=== PATIENT | female | born 1990 | race Caucasian/White ===

== ENCOUNTER 2017-07-06 19:57 | Emergency (ER) | payer MEDICAID ==
[2016-06-04 05:25] VITALS: Wt 127.0 kg
[~2017-07-06 19:57] MED LIST: ACE3 PO; ALB17R INH; ALBU8.5H IH; AMO500 PO; AZI250 PO; BACDS PO; CEP500 PO; FLUT16SP20 NS; GUAI-225 PO; HYDR-4309 PO; IBU600 PO; IBUP800T37 PO; IRON1TAB55 PO; LOR5/325 PO; NO MEDS; NO ROUTINE MEDS; NO RTN MEDS; PRE20 PO; PREN-67 PO; PREN-85 PO; PRO25I IM; TOBOD OD
--- NOTE | 2017-07-06 20:00 | ER Report ---
History and Physical Time Seen By MD: 20:00 HPI/ROS CHIEF COMPLAINT: Shortness of breath HISTORY OF PRESENT ILLNESS: 27-year-old female at 15 weeks [address] Wells.. Patient's had URI for 1 week. She has a history of asthma. She was seen by primary care. She used her inhaler this morning with improvement of her breathing. She's had a terrible cough for 24 hours with nonproductive. Patient was sent over by urgent care for evaluation of potential pulmonary embolism. She seems to have quite a bit of air hunger. Her pulse ox is normal. She is not tachycardic. Patient notes no leg swelling or calf pain. REVIEW OF SYSTEMS: Respiratory: As above Cardiovascular: No chest pain, no palpitations. Gastrointestinal: No vomiting, no abdominal pain. Musculoskeletal: No back pain. Allergies: Coded Allergies: No Known Drug Allergies (Verified , 07/06/17) Home Meds Active Scripts Prednisone (PREDNISONE) 20 Mg Tablet, 20 MG PO QDAY for asthma exacerbation for 5 Days Prov:HI BETH DO 07/06/17 Reported Medications Albuterol Sulfate 90 Mcg/Act (PROAIR HFA 90 MCG/ACT) 8.5 Gm Hfa.aer.ad, 1-2 PUFF IH 3-4XD, INHALER 07/06/17 Vits W-Ca,Fe,Fa(<1MG) ( Vitamins) 1 Tab Tablet, 1 TAB PO QDAYA TAKE 1 TABLET DAILY 03/27/12 Discontinued Scripts Ibuprofen (IBUPROFEN) 800 Mg Tablet, 800 MG PO Q8H, #60 TAB-CAP 1 Refill Prov:OTONIEL GORDON MD 06/05/16 Acetaminophen/Codeine (TYLENOL #3 (OR EQUIV)) 1 Ea Tab, 1-2 EACH PO Q4H Y for PAIN, #30 TAB 0 Refills Prov:OTONIEL GORDON MD 06/05/16 Reviewed Nurses Notes: Yes Old Medical Records Reviewed: Yes Hx Smoking: No Smoking Status: Never Smoker Exposure to Second Hand Smoke?: No Hx Substance Use Disorder: No Hx Alcohol Use: No Constitutional Vital Sign - Last 24 Hours 07/06/17 07/06/17 07/06/17 07/06/17 20:01 20:03 20:12 20:27 Temp 98.3 Pulse 75 74 69 Resp 14 B/P (MAP) 100/68 (79) 100/68 Pulse Ox 96 96 97 O2 Delivery Room Air 07/06/17 07/06/17 07/06/17 20:42 20:57 21:12 Pulse 77 78 74 Pulse Ox 93 93 95 Physical Exam General Appearance: The patient is alert, has no immediate need for airway protection and no current signs of toxicity. Vital signs stable, afebrile, pulse ox normal, mild air hunger with repetitive coughing. The cough appears dry HEENT: Pupils equal and round no injection. TMs normal, oropharynx without or exudate, mucous. Membranes are moist Respiratory: Chest is non tender, lungs are clear to auscultation. Faint expiratory wheezing, Cardiac: regular rate and rhythm Gastrointestinal: Abdomen is soft and non tender, no masses, bowel sounds normal. Musculoskeletal: Neck: Neck is supple and non tender. Extremities have full range of motion and are non tender. Skin: No rashes or lesions. DIFFERENTIAL DIAGNOSIS: After history and physical exam differential diagnosis was considered for shortness of breath including but not limited to pulmonary infectious process, COPD, asthma, pulmonary embolus and congestive heart failure. Medical Decision Making EKG/Imaging EKG Interpretation 12 lead EK Rhythm: normal sinus rhythm at 69 bpm [place]: normal QRS: S1, every 3, T3 suggesting pulmonary embolism noted, ST segments: normal ED Course/Re-evaluation ED Course Patient was admitted to an examination room. H&P was done. The differential diagnoses was considered. On conical examination. Patient has air hunger. She has had a normal respiratory rate, normal pulse ox and a normal heart rate. An EKG is performed which shows S1, every 3, T3 suspicious for pulmonary embolus him. The results are discussed with her. Her case is discussed with Dr. Poole on-call [employer], who advises to proceed with CT pulmonary angiogram. Patient refused CT pulmonary angiogram. She states 2 years ago she had a CT pulmonary angiogram and she proceeded to miscarriage. Her . She would like to proceed with a VQ scan tomorrow. Patient was treated with Lovenox 120 mg subcutaneous. Patient was given information to follow up tomorrow for a VQ scan. She is placed on prednisone 20 mg per day for 5 days. She is advised to use Robitussin-DM for cough suppression. 07/06/2017 8:28:22 pm case discussed with Dr. Sorin Poole who advises proceeding to CTPA. Decision to Disposition Date: Jul 06, 2017 Decision to Disposition Time: 20:37 Depart Departure Latest Vital Signs Vital Signs Date Time Temp Pulse Resp B/P (MAP) Pulse Ox O2 Delivery O2 Flow Rate FiO2 07/06/17 21:12 74 95 07/06/17 20:03 98.3 14 100/68 Room Air Impression: Primary Impression: Dyspnea Additional Impressions: Cough Asthma Condition: Improved Disposition: HOME OR SELF-CARE Referrals: EZIO CERDA MD New Scripts Prednisone (PREDNISONE) 20 Mg Tablet 20 MG PO QDAY for asthma exacerbation for 5 Days Prov: HI BETH DO 07/06/17 Patient Instructions: Asthma (ED), Dyspnea (ED) Additional Instructions: Follow-up with your [employer] after the VQ scan Return to the ER for any worsening Problem Qualifiers Primary Impression: Dyspnea Dyspnea type: dyspnea on exertion Qualified Codes: R06.09 - Other forms of dyspnea Additional Impressions: Asthma Asthma severity: mild Asthma persistence: intermittent Asthma complication type: with acute exacerbation Qualified Codes: J45.21 - Mild intermittent asthma with (acute) exacerbation HI BETH DO Jul 06, 2017 20:00
[2017-07-06 20:03] VITALS: BP 100/68
[2017-07-06] MEDS ORDERED: ALBU8.5H IH (20:06)
[2017-07-06] MEDS ORDERED: predniSONE 20 MG TAB PO ONE (20:30)
--- NOTE | 2017-07-06 20:45 | EKG ---
FACILITY: [facility] - [place] PATIENT NAME: KIZZY MARI : [id number] MR: [id number] V: [id number] EXAM DATE: ORDERING PHYSICIAN: HI BETH TECHNOLOGIST: SAM Test Reason : SOB Blood Pressure : / mmHG Vent. Rate : 069 BPM Atrial Rate : 069 BPM P-R Int : 160 ms QRS Dur : 112 ms QT Int : 406 ms P-R-T Axes : 042 086 006 degrees QTc Int : 435 ms Normal sinus rhythm Interventricular conduction delay. Cannot rule out Inferior infarct , age undetermined Abnormal ECG No previous ECGs available Confirmed by AYALA OROZCO ([id number]) on 07/06/2017 10:09:34 PM Referred By: Confirmed By:AYALA OROZCO
[2017-07-06] MEDS ORDERED: ENOXAPARIN 100 MG/ML SYR SC ONE (20:55)
[2017-07-06] MEDS ORDERED: PRED20TA6 PO (21:01)
== END 2017-07-06 21:37 | disposition home or self-care (01) ==
LOC: ER 20:26
DX: O26.892 Other specified pregnancy related conditions, second trimester (principal); Z3A.15 15 weeks gestation of pregnancy; R06.02 Shortness of breath; R05 Cough
CPT/HCPCS: 93005; 99283; J1650; J7512

== ENCOUNTER 2017-07-07 12:54 | Emergency (ER) | payer MEDICAID ==
[2016-06-04 05:25] VITALS: Wt 127.0 kg
--- NOTE | 2017-07-07 13:19 | ER Report ---
History and Physical Time Seen By MD: 13:19 Hx. of Stated Complaint: SOB AND 15 WEEKS . HPI/ROS This is a 27-year-old female with a history of asthma who was seen in the emergency department approximately 12 hours ago for shortness of breath and a cough. At the time, according to the EMR. She was not tachycardic, not hypoxic , and not febrile. She denied any chest pain. She did complain of viral URI symptoms such as a cough and congestion. She was sent to the emergency department last night from the urgent care where she went just to make sure she did not have pneumonia. She was sent to the emergency department for a possible PE. There was a discussion last night as to obtaining a CTA of the chest to rule out a PE, but the patient refused the study and was set up for a VQ scan today. I was called by the radiologist who was concerned that if the patient refused a CTA. The VQ scan is actually more radiation for the fetus. I had the patient sent to the emergency department for reevaluation. Upon reevaluation, her shortness of breath is improved with 1 dose of steroids given to her yesterday. She still has a cough and URI symptoms. Again, there is no hypoxia and no tachycardia. She denies chest pain. She has been using her inhaler at home, now with relief of her symptoms. Remainder of the 14 system rev: Yes Allergies: Coded Allergies: No Known Drug Allergies (Verified , 07/06/17) Home Meds Active Scripts Prednisone (PREDNISONE) 20 Mg Tablet, 20 MG PO QDAY for asthma exacerbation for 5 Days Prov:HI BETH DO 07/06/17 Reported Medications Albuterol Sulfate 90 Mcg/Act (PROAIR HFA 90 MCG/ACT) 8.5 Gm Hfa.aer.ad, 1-2 PUFF IH 3-4XD, INHALER 07/06/17 Vits W-Ca,Fe,Fa(<1MG) ( Vitamins) 1 Tab Tablet, 1 TAB PO QDAYA TAKE 1 TABLET DAILY 03/27/12 Discontinued Scripts Ibuprofen (IBUPROFEN) 800 Mg Tablet, 800 MG PO Q8H, #60 TAB-CAP 1 Refill Prov:OTONIEL GORDON MD 06/05/16 Acetaminophen/Codeine (TYLENOL #3 (OR EQUIV)) 1 Ea Tab, 1-2 EACH PO Q4H Y for PAIN, #30 TAB 0 Refills Prov:OTONIEL GORDON MD 06/05/16 Reviewed Nurses Notes: Yes Old Medical Records Reviewed: Yes Hx Smoking: No Smoking Status: Never Smoker Exposure to Second Hand Smoke?: No Hx Substance Use Disorder: No Hx Alcohol Use: No Constitutional Vital Sign - Last 24 Hours 07/07/17 13:10 Temp 98.0 Pulse 79 Resp 18 B/P (MAP) 117/68 Pulse Ox 94 O2 Delivery Room Air Physical Exam General Appearance: The patient is alert, has no immediate need for airway protection and no current signs of toxicity. Eyes: Pupils equal and round no injection. Respiratory: Chest is non tender, lungs are clear to auscultation. Cardiac: regular rate and rhythm Gastrointestinal: Abdomen is soft and non tender, no masses, bowel sounds normal. Skin: No rashes or lesions. DIFFERENTIAL DIAGNOSIS: After history and physical exam differential diagnosis was considered for shortness of breath including but not limited to pulmonary infectious process, COPD, asthma, pulmonary embolus and congestive heart failure. Medical Decision Making Data Points Laboratory Hematology Test 07/07/17 13:21 D-Dimer Quantitative (PE/DVT) 0.40 ug/ml (0-0.50) Chemistry Test 07/07/17 13:21 D-Dimer Quantitative (PE/DVT) 0.40 ug/ml (0-0.50) Coagulation Test 07/07/17 13:21 D-Dimer Quantitative (PE/DVT) 0.40 ug/ml ED Course/Re-evaluation ED Course History of a very pleasant 27-year-old female at 15 weeks gestation, who presented to the emergency department last night and there was some concern of a PE. She refused CTA of the chest last night because of risk to the fetus. She arrived for a VQ scan today to the radiology department. She was sent to the emergency department, because a VQ scan is more radiation for the fetus and the CTA. I recommended that she come to the emergency department for reevaluation. She states that her shortness of breath is much improved after steroids given to her last night. Symptoms are now controlled with her own inhaler as they were not yesterday. He is not tachycardic and not hypoxic. I did order a d-dimer which is negative. I think there is a very low suspicion for a PE in the setting. This is more consistent with a viral upper respiratory infection. I spoke with the patient at length about the findings and they're both in agreement that she did not need any additional imaging to look for a PE at this time. She will continue with the prednisone prescription that was given to her last night. Decision to Disposition Date: Jul 07, 2017 Decision to Disposition Time: 14:04 Depart Departure Latest Vital Signs Vital Signs Date Time Temp Pulse Resp B/P (MAP) Pulse Ox O2 Delivery O2 Flow Rate FiO2 07/07/17 13:10 98.0 79 18 117/68 94 Room Air Impression: Primary Impression: Viral URI with cough Condition: Improved Disposition: HOME OR SELF-CARE Patient Instructions: Upper Respiratory Infection (DC) ANTHONY VITAL MD Jul 07, 2017 13:19
[2017-07-07] MEDS ORDERED: predniSONE 20 MG TAB PO ONE (14:00)
[2017-07-07 14:30] VITALS: BP 125/87
== END 2017-07-07 14:30 | disposition home or self-care (01) ==
LOC: ER 13:07
DX: O98.812 Other maternal infectious and parasitic diseases complicating pregnancy, second trimester (principal); Z3A.15 15 weeks gestation of pregnancy
CPT/HCPCS: 85379; 99282

== ENCOUNTER → 2017-07-07 | Outpatient (CLI) | payer MEDICAID ==
[2016-06-04 05:25] VITALS: BMI 38.4
[~2017-07-07] MED LIST changes: +PRED20TA6 PO
== END ==
LOC: NUC 07:40
PROVIDERS: ATTEND Emergency Medicine
DX: R06.00 Dyspnea, unspecified (principal)

== ENCOUNTER 2017-08-22 23:45 | Emergency (ER) | payer MEDICAID ==
[2016-06-04 05:25] VITALS: Wt 127.0 kg
[2017-08-22 23:54] VITALS: BP 115/74
--- NOTE | 2017-08-22 23:59 | ER Report ---
History and Physical Time Seen By MD: 00:00 Hx. of Stated Complaint: Pt reports being having eye drainage, cough, and ear pain. HPI/ROS CHIEF COMPLAINT: not feeling well HISTORY OF PRESENT ILLNESS: This is a 27 year old female. She has been sick for about 3 days now. Started as runny nose and sore throat. Now with ear pain on the right side. Tonight with a red and watering left eye. Has cough which is non -productive. Feels chilled. No trouble breathing. No chest pain. Having some nausea, but no vomiting. No abdominal pain. No trouble with urination or bowels. No known sick contacts. Allergies: Coded Allergies: No Known Drug Allergies (Verified , 08/23/17) Home Meds Active Scripts Guaifenesin/Codeine (GUAIFENESIN-CODEINE SYRUP) 5 Ml Syrp, 5 ML PO Q6H Y for COUGH, #120 ML 0 Refills Prov:DUDLEY FRIEDMAN MD 08/23/17 Amoxicillin (AMOXICILLIN) 500 Mg Capsule, 1 CAP PO Q8H, #21 CAPSULE 0 Refills Prov:DUDLEY FRIEDMAN MD 08/23/17 Prednisone (PREDNISONE) 20 Mg Tablet, 20 MG PO QDAY for asthma exacerbation for 5 Days Prov:HI BETH DO 07/06/17 Reported Medications Albuterol Sulfate 90 Mcg/Act (PROAIR HFA 90 MCG/ACT) 8.5 Gm Hfa.aer.ad, 1-2 PUFF IH 3-4XD, INHALER 07/06/17 Vits W-Ca,Fe,Fa(<1MG) ( Vitamins) 1 Tab Tablet, 1 TAB PO QDAYA TAKE 1 TABLET DAILY 03/27/12 Reviewed Nurses Notes: Yes Hx Smoking: No Smoking Status: Never Smoker Exposure to Second Hand Smoke?: No Hx Substance Use Disorder: No Hx Alcohol Use: No Constitutional Vital Sign - Last 24 Hours 08/22/17 23:54 Temp 98.4 Pulse 73 Resp 18 B/P (MAP) 115/74 Pulse Ox 96 O2 Delivery Room Air Physical Exam General Appearance: The patient is alert, has no immediate need for airway protection and no current signs of toxicity. Eyes: Pupils equal and round, injection and watering of the left eye, consistent with conjunctivitis. ENT: Normal oral mucosa. Moist mucous membranes. Posterior oropharynx is mildly erythematous, but no exudates or hypertrophy. TM on the left has effusion without redness or bulging. TM on the right is red and bulging. Neck: Neck is supple and non tender. Respiratory: Chest is non tender, lungs are clear to auscultation. Cardiac: regular rate and rhythm Gastrointestinal: Abdomen is soft and non tender, no masses, bowel sounds normal. Musculoskeletal: Extremities have full range of motion. Skin: No rashes or lesions. DIFFERENTIAL DIAGNOSIS: After history and physical exam differential diagnosis was considered for upper respiratory infection with acute otitis media on the right and conjunctivitis of the left. Medical Decision Making ED Course/Re-evaluation ED Course Treatment with Amoxicillin for the otitis medial. Lubricating eye drops for the conjunctivitis. Guaifenesin with codeine to help with pain and cough. Decision to Disposition Date: Aug 23, 2017 Decision to Disposition Time: 00:13 Depart Departure Latest Vital Signs Vital Signs Date Time Temp Pulse Resp B/P (MAP) Pulse Ox O2 Delivery O2 Flow Rate FiO2 08/22/17 23:54 98.4 73 18 115/74 96 Room Air Impression: Primary Impression: Acute otitis media Additional Impression: Conjunctivitis Condition: Improved Disposition: HOME OR SELF-CARE New Scripts Guaifenesin/Codeine (GUAIFENESIN-CODEINE SYRUP) 5 Ml Syrp 5 ML PO Q6H Y for COUGH, #120 ML 0 Refills Prov: DUDLEY FRIEDMAN MD 08/23/17 Amoxicillin (AMOXICILLIN) 500 Mg Capsule 1 CAP PO Q8H, #21 CAPSULE 0 Refills Prov: DUDLEY FRIEDMAN MD 08/23/17 Patient Instructions: Conjunctivitis (ED), Otitis Media (ED) Additional Instructions: Take Amoxicillin 500mg capsules, three times a day for 7 days. Increase fluid intake and rest for the next few days. Take Guaifenesin with Codeine, 1 teaspoon every 4 hours as needed for cough and pain. Take Over the counter Ibuprofen and/or Tylenol as needed for pain. Use some over the counter lubricating eye drops, like Refresh or Sustain or other, 1 drop in the eye every 1-2 hours as needed for comfort. Problem Qualifiers Primary Impression: Acute otitis media Otitis media type: suppurative Laterality: right Recurrence: not specified as recurrent Spontaneous tympanic membrane rupture: without spontaneous rupture Qualified Codes: H66.001 - Acute suppurative otitis media without spontaneous rupture of ear drum, right ear Additional Impression: Conjunctivitis Conjunctivitis type: acute Acute conjunctivitis type: unspecified Laterality: left Qualified Codes: H10.32 - Unspecified acute conjunctivitis, left eye DUDLEY FRIEDMAN MD Aug 23, 2017 00:00
[2017-08-23] MEDS ORDERED: ROBC PO (00:14)
[2017-08-23] MEDS ORDERED: AMOX-362 PO (00:14)
[2017-08-23] MEDS ORDERED: guaiFENesin/CODEINE 5 ML UDBTL PO ONE (00:15)
[2017-08-23] MEDS ORDERED: AMOXICILLIN 500 MG CAP PO ONE (00:15)
== END 2017-08-23 00:38 | disposition home or self-care (01) ==
LOC: ER 23:56
DX: H66.001 Acute suppurative otitis media without spontaneous rupture of ear drum, right ear (principal); H10.32 Unspecified acute conjunctivitis, left eye
CPT/HCPCS: 99282

== ENCOUNTER → 2017-11-04 | Outpatient (CLI) | payer MEDICAID ==
[2016-06-04 05:25] VITALS: BMI 38.4
[~2017-11-04] MED LIST changes: +AMOX-362 PO; +DIPH0.5D12 IM; +GENT5DRO28 OP; +PRED5DRO34 OP; +PREN-127 PO; +ROBC PO
[2017-11-04 16:35] LABS: PLATELET COUNT, AUTOMATED 256 K/uL (150-450)
== END ==
LOC: LAB 15:37
PROVIDERS: ATTEND Student in an Organized Health Care Education/Training Program
DX: Z34.83 Encounter for supervision of other normal pregnancy, third trimester (principal)
CPT/HCPCS: 36415; 82950; 85025

== ENCOUNTER → 2017-11-06 | Outpatient (CLI) | payer MEDICAID ==
[2016-06-04 05:25] VITALS: BMI 38.4
== END ==
LOC: LAB 13:20
PROVIDERS: ATTEND Student in an Organized Health Care Education/Training Program
DX: Z02.9 Encounter for administrative examinations, unspecified (principal)

== ENCOUNTER → 2017-11-09 | Outpatient (CLI) | payer MEDICAID ==
[2016-06-04 05:25] VITALS: BMI 38.4
== END ==
LOC: LAB 07:35
PROVIDERS: ATTEND Student in an Organized Health Care Education/Training Program
DX: Z13.1 Encounter for screening for diabetes mellitus (principal)
CPT/HCPCS: 36415; 82951; 82952

== ENCOUNTER 2017-11-22 17:27 | Outpatient (CLI) | payer MEDICAID ==
[~2017-11-22] VITALS: Ht 167.6 cm; Wt 122.5 kg
[2017-11-22 18:01] VITALS: BP 123/63; Ht 167.6 cm; Wt 122.5 kg
[2017-11-22] MEDS ORDERED: DLR(*) 1000 ML BAG 1,000 ML IV PRN (18:13)
[2017-11-22] MEDS ORDERED: ONDANSETRON 4 MG ODT TABDP SL ONE (18:15)
[2017-11-22] MEDS ORDERED: ACETAMINOPHEN 500 MG TAB PO ONE (18:20)
[2017-11-22] MEDS ORDERED: NS(*) 0.9% 1000 ML BAG 1,000 ML IV ONE (20:00)
== END 2017-11-22 21:26 | disposition home or self-care (01) ==
LOC: UNDOADMIN 17:27 → OB 17:27 → L&D 17:27 → UNDODISIN 21:26 → EDSTATUS 11-25 14:57
PROVIDERS: ATTEND Obstetrics & Gynecology
DX: O26.893 Other specified pregnancy related conditions, third trimester (principal); Z3A.34 34 weeks gestation of pregnancy
CPT/HCPCS: 59025; 81001; G0463; J7030; S0119; 99213

== ENCOUNTER 2017-12-22 05:30 | Inpatient (IN) | payer MEDICAID ==
[~2017-12-22] VITALS: Ht 170.2 cm; Wt 130.6 kg
[~2017-12-22 05:30] MED LIST changes: +FLU60SYR36 IM
[2017-12-22] MEDS ORDERED: ceFAZolin(*) 2GM/D5W 50ML 50 ML IVPB PRN (05:33)
[2017-12-22] MEDS ORDERED: OXYTOCIN 30 UNIT/D5LR 500 ML 500 ML IV PRN ×2 (05:33→16:05)
[2017-12-22] MEDS ORDERED: FAMOTIDINE(*) 20MG/50ML PREMIX 50 ML IVPB PRN (05:33)
[2017-12-22] MEDS ORDERED: LIDOCAINE 1% LOCAL 300 MG/30ML INJ PRN (05:35)
[2017-12-22] MEDS ORDERED: fentaNYL CITR 100 MCG/2 ML AMP IVP PRN (05:35)
[2017-12-22] MEDS ORDERED: MISOPROSTOL 25 MCG CAP PV PRN (05:35)
[2017-12-22] MEDS ORDERED: LIDOCAINE/SOD BICARB 8.4% SYR SC PRN (05:35)
[2017-12-22] MEDS ORDERED: METOCLOPRAMIDE 10 MG/2 ML SDV IVP PRN (05:35)
[2017-12-22] MEDS ORDERED: TERBUTALINE SULF 1 MG/ML VIAL SUBQ PRN (05:35)
[2017-12-22 06:15] VITALS: BP 113/82; Ht 170.2 cm; Wt 130.6 kg
[2017-12-22 06:32] LABS: PLATELET COUNT, AUTOMATED 241 K/uL (150-450)
[2017-12-22] MEDS: LR(*) 1000 ML BAG 1,000 ML IV PRN ×3 (06:47→12:00)
[2017-12-22] MEDS ORDERED: fentaNYL CITR 100 MCG/2 ML AMP IT PRN (07:35)
[2017-12-22] MEDS ORDERED: LIDO/EPI 2% MPF 1:200,000 20ML EPI PRN (07:35)
[2017-12-22] MEDS ORDERED: BUPIVACAINE 0.25% MPF INJ EPI PRN (07:35)
[2017-12-22] MEDS ORDERED: FENTANYL/ROPIVACAINE 100 ML BAG EPI PRN (07:35)
[2017-12-22] MEDS ORDERED: LIDOCAINE/PF 2% 200MG/10ML AMP 200 MG/10 ML AMPUL EPI PRN (07:35)
[2017-12-22] MEDS ORDERED: BUPIVACAINE 0.5% INJ 30ML VIAL EPI PRN (07:35)
--- NOTE | 2017-12-22 09:49 | History & Physical ---
History of Present Illness Age of Patient: 27 : 7 Para or TPAL: 4024 EDC per LMP: Dec 27, 2017 Estimated Gestational Age: 39.2 Chief Complaint Induction History of Present Illness Pt is a 27 y/o @ 39-2/7 wga who presents to clinic for a scheduled IOL. Pt denies any contraction. Good movement. No vaginal bleeding. No loss of amniotic fluid. No concerns or questions. History Patient's Blood Type: O Positive Rubella Status: Immune Group B Strep Screen: Negative Obstetrical History: @ 39-2/7 wga Past Medical History: Asthma BMI 45 Allergies: Coded Allergies: No Known Drug Allergies (Verified , 08/23/17) Social History: No T/E/D. Family History: FH: HTN (hypertension) MOTHER FH: diabetes mellitus MOTHER Med Rec Home Meds Reported Medications Prednisolone Acetate (PREDNISOLONE ACETATE) 5 Ml Drops.susp, 5 ML OP 5XD 09/10/17 Vits W-Ca,Fe,Fa(<1MG) ( VITAMINS) 1 Each Tablet, 1 EACH PO DAILY, TAB 09/10/17 Albuterol Sulfate 90 Mcg/Act (PROAIR HFA 90 MCG/ACT) 8.5 Gm Hfa.aer.ad, 1-2 PUFF IH 3-4XD, INHALER 07/06/17 Review of Systems All Systems Reviewed/Normal: Yes, Except as Noted Constitutional: No Fever, No Weight Loss, No Weight Gain, No Chills, No Night Sweats, No Other Neurological: No Syncope, No Confusion, No Weakness, No Dizziness, No Slurred Speech, No Other Eyes: No Vision Change, No Loss of Vision, No Photophobia, No Other ENT: No Hearing Loss, No Sinus Congestion, No Sore Throat, No Ear Ache, No Tinnitus, No Other Cardiovascular: No Chest Pain, No Palpitations, No Orthostatic Hypotension, No Other Respiratory: No Shortness of Breath, No Cough, No Wheezing, No Other Gastrointestinal: No Nausea, No Vomiting, No Diarrhea, No Dysphagia, No Constipation, No Early Satiety, No Hematemesis, No Hematochezia, No Melena, No Abdominal Pain, No Other Genitourinary: No Dysuria, No Hematuria, No Urinary Incontinence, No Other Musculoskeletal: No Pain, No Sprain, No Strain, No Impaired Mobility, No Other Psychiatric: No Depression, No Anxiety, No Other Exam General Exam Vital Signs Vital Signs Date Time Temp Pulse Resp B/P (MAP) Pulse Ox O2 Delivery O2 Flow Rate FiO2 12/22/17 06:15 98.1 75 16 113/82 (92) 94 Room Air General Apperance: Alert/Awake/No Acute Distress Neuro: No Gross deficits Eyes: Normal Extraocular Movement & Vison, PERRLA ENT: Normal Cardiovascular: Regular Rate and Rhythm Respiratory: No Respiratory Distress, Clear to Auscultation Abdomen: Soft, Non-Tender, Non-Distended : Normal Musculoskeletal: No Weakness/Pain Extremities: No Cyanosis,Clubbing or Edema Integumentary: Skin Intact without Lesions or Rash Psychological: Alert & Oriented X3, Appropriate Mood & Affect Vaginal Discharge/Fluid?: Clear Fluid (Amniotomy with clear fluid) Cervical Dialation: 3 Cervical Effacement (%): 60 Cervical Consistency: Moderate Cervical Position: Mid Station: -2 Presentation: Vertex Uterine Contractions(Q min): 8 Uterine Contraction Strength: Moderate UC Resting Tone: Soft Fetus Feeling Movement?: Yes Heart Tones: 130 Heart Tone Variabilty: Moderate FHT Accelerations: 15X15 FHT Decelerations: None FHT Category: I Medical Decision Making Data Points Result Diagram: 12/22/17 0600 Pre-Admit Course Medical Record Review: Yes VTE Prophylasis: Adult Deep Vein Thrombosis/Pulmonary: No 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 S/p amniotomy with clear fluid. Epidural when requested. Expect . [place], plan/prep for possible PPH. FE MONTEMAYOR DO Dec 22, 2017 09:49
[2017-12-22] MEDS ORDERED: ONDANSETRON 4 MG/2 ML VIAL IVP PRN (10:00)
[2017-12-22] MEDS ORDERED: EPIDURAL KEYS XX PRN (10:00)
[2017-12-22] MEDS ORDERED: CARBOPROST TROMETHAM 250MCG/ML IM ONLY ONE (13:11)
[2017-12-22] MEDS ORDERED: METHYLERGONOVINE MAL 0.2MG/ML ONE ×2 (13:11→13:12)
--- NOTE | 2017-12-22 13:52 | Anesthesia OB Pre-Anes Eval ---
History of Present Illness Anesthesia Start Date: Dec 22, 2017 Anesthesia Start Time: 10:50 OB Anesthesia Diagnosis: induction - elective Current Complication: obesity EDC: Dec 27, 2017 : 7 Para: 4 Pain Ratin Result Diagram: 12/22/17 0600 Height (Inches): 67.00 Weight (Pounds): 288 BMI Calculated: 45.10 Past Medical History Medical History: obesity, asthma Surgical History: noncontributory Previous Anesthesia: epidural Attended Childbirth Classes?: No Hx Anesthesia Reactions: No Hx Family Anesthesia Reaction: No Past Complications: obesity Home Meds Reported Medications Prednisolone Acetate (PREDNISOLONE ACETATE) 5 Ml Drops.susp, 5 ML OP 5XD 09/10/17 Vits W-Ca,Fe,Fa(<1MG) ( VITAMINS) 1 Each Tablet, 1 EACH PO DAILY, TAB 09/10/17 Albuterol Sulfate 90 Mcg/Act (PROAIR HFA 90 MCG/ACT) 8.5 Gm Hfa.aer.ad, 1-2 PUFF IH 3-4XD, INHALER 07/06/17 Allergies: Coded Allergies: No Known Drug Allergies (Verified , 08/23/17) Anesthesia OB ROS Pulmonary: asthma Airway Class: l GI ROS: clear liquids, ice chips Last Solids Date: Dec 21, 2017 Last Solids Time: 18:00 ASA Classification: 3 (Obesity, asthma history) Assessment and Plan Anesthesia Plan: LEB Anesthesia Stop Day: Dec 22, 2017 Anesthesia Stop Time: 13:30 Epidural Catheter Removal: Removed by: (Catheter will be removed by RN at a more convenient time.) LAKESHA SEGURA CRNA Dec 22, 2017 12:21
--- NOTE | 2017-12-22 13:54 | Procedure Note ---
Anesthetic Placement Note Anesthesia Plan: LEB Permit for Anesthesia Signed: Yes Anesthesia Technique: Patient Sitting Anesthesia Prep: Betadine Interspace: L 3-4 Local Anesthetic: 1% Lidocaine Amount Local - cc's: 3 Anesthesia Needle: 17g Touhy/Schliff Anesthesia Attempts: 2 Loss of Resistance: Normal Saline Depth of BONNIE (cm): 7 Cerebral Spinal Fluid: No Catheter Insertion (cm): 6 Catheter Type: Rodrigez - Spring Wound Epidural Dressing: Tegaderm, Tape, Adhesive [place] Anesthesia Tray: Lot Number ([id number]), Expiration Date (2018-12-20), Reference Number ([id number]) Anesthesia Medications: Epidural Test Dose: 1.5 Lido/Epi (1:200,000), Dose - mL (3), Time (1111), Negative (No symptoms IV or IT injection.) Epidural Loading Dose: 0.2% Ropivicaine, With Fentanyl 2mcg/ml, Dose - ml (15ml in 5ml increments), Time (1115) Epidural Infusion: 0.2% Ropivicaine, With Fentanyl 2mcg/ml, Start Time: (1125) Epidural Pump Setting: Bolus Dose - mL (5), Lockout - Minutes (15), Maintenance Rate - mL/hr (10), Maximum per Hour - mL (25) Complications: None Comment: Good analgesia, minimal motor block R=L. 1330 Uneventful vaginal delivery, epidural infusion discontinued. LAKESHA SEGURA CRNA Dec 22, 2017 12:26
[2017-12-22] MEDS ORDERED: HYDROCORTISONE 2.5% CR 30GM TB PR PRN (14:15)
[2017-12-22] MEDS ORDERED: ACETAMINOPHEN 325 MG TAB PO PRN (14:15)
[2017-12-22] MEDS ORDERED: BENZOCAINE 20% 60 ML BTL TP PRN (14:15)
[2017-12-22] MEDS ORDERED: MAGNESIUM HYDROXIDE* 30ML UDCP PO PRN (14:15)
[2017-12-22] MEDS ORDERED: APAP/HYDROCODONE 325/5 TAB PO PRN (14:15)
[2017-12-22] MEDS ORDERED: GLYCERIN/WITCH HAZEL LEAF 1 PK TP PRN (14:15)
[2017-12-22] MEDS ORDERED: LANOLIN OINT 7 GM TUBE TP PRN (14:15)
[2017-12-22] MEDS: IBUPROFEN 800 MG TAB PO SCH ×2 (15:23→23:31)
[2017-12-22] MEDS ORDERED: OXYTOCIN 30 UNIT/D5LR 500 ML 500 ML ONE (16:08)
--- NOTE | 2017-12-22 17:11 | OB Delivery Note ---
Delivery Note Vaginal Delivery Type: Spont. 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
--- NOTE | 2017-12-22 18:03 | DELIVERY NOTE ---
DELIVERY DATE: December 22, 2017 SURGEON: Durga Snell DO ANESTHESIA: Epidural. PREOPERATIVE DIAGNOSES 1. A 27-year-old 7, para 4-0-2-4, at 39-2/7 weeks' gestation. 2. Arrest of labor. 3. Body mass index 45. DELIVERY DIAGNOSES 1. A 27-year-old 7, para 4-0-2-4, at 39-2/7 weeks' gestation. 2. Arrest of labor. 3. Body mass index 45. 4. Delivered. PROCEDURE Spontaneous vaginal delivery with no laceration repair. FINDINGS Live-born female at 1313 on December 22, 2017, with Apgars of 8 and 9, weighing 3688 g, 8 pounds 2 ounces, three-vessel cord, intact placenta, over an intact perineum. ESTIMATED BLOOD LOSS 400 mL PATHOLOGY None. COMPLICATIONS None known. CONDITION Stable times two. Mother and remain in LDRP. COUNTS Correct times two for all needles, laps, sponges, and instruments. LABOR SUMMARY Patient is a 27-year-old 7, para 4, at 39-2/7 weeks' gestation who present to Labor for induction of labor electively. Patient was started on oxytocin. Her cervix was 3 cm. She underwent amniotomy with clear amniotic fluid. The patient progressed quickly to complete, complete, and +2. She began to feel increased pressure. She was started and coached on appropriate pushing. The delivery room was set up, and the patient was prepped for vaginal delivery. DELIVERY SUMMARY Patient was placed in the dorsal lithotomy position, prepped and draped in the usual sterile manner. Upon maternal pushing, the 's head delivered in a controlled manner, followed by the anterior shoulder in a gentle downward motion and the posterior shoulder in a gentle upward motion. The remainder of the 's body delivered spontaneously. Mouth and nose were bulb suctioned. The cord was clamped times two and cut by the infant's father after approximately 2- 1/2 minutes post delivery. The remained on maternal abdomen where he was vigorously cleaned and dried by nursing staff. Cord blood gas was obtained. Placenta delivered spontaneously with gentle cord traction. Oxytoxin was infused to help with uterine tone. The uterus was massaged until deemed firm. Upon inspection of the perineum, vagina, cervix, and labia, there were no lacerations present. Uterus was firm and hemostatic. At this point, the patient was cleaned and the labor bed reassembled. The mother and infant were allowed to continue to love. JEWELS
[2017-12-22 19:45] VITALS: BP 115/72
[2017-12-22] MEDS: DOCUSATE CALCIUM 240 MG CAP PO SCH (20:54)
[2017-12-22 23:00] VITALS: BP 111/81
[2017-12-23 03:30] VITALS: BP 124/69
[2017-12-23] MEDS: IBUPROFEN 800 MG TAB PO SCH (06:28)
[2017-12-23 08:30] VITALS: BP 128/76
[2017-12-23] MEDS ORDERED: ENOXAPARIN 40 MG/0.4ML SYR SC SCH (09:00)
--- NOTE | 2017-12-23 10:24 | OB/GYN Progress Note ---
OB Subjective Progress Notes Subjective Doing good this morning. Reports pain controlled. Tolerating PO intake. Voiding with out any difficulty. Ambulatory in room only. Lochia appropriate. Bottle/breast feeding. Desires to be discharged home if possible. GI: NEG Nausea, NEG Vomiting, NEG Flatus, NEG Bowel Movement : Voiding Well, Vaginal Bleeding, Moderate Pain: Mild, Tolerating PO Pain Meds Neurological: No Headache, No Other Eyes: No Visual Disturbances OB Objective Physical Exam Vital Signs Date Time Temp Pulse Resp B/P (MAP) Pulse Ox O2 Delivery O2 Flow Rate FiO2 12/23/17 08:30 97.3 65 16 128/76 (93) 93 Room Air 12/23/17 03:30 2.0 Intake and Output 12/23/17 07:00 Intake Total 2750 ml Output Total 300 ml Balance 2450 ml Intake IV Total 2750 ml Output Urine Total 300 ml # Voids 1 General Appearance: Alert/Awake/No Acute Distress Neurological: No Gross deficits Eyes: Normal Extraocular Movement & Vison, PERRLA Respiratory: No Respiratory Distress, Clear to Auscultation Abdomen: Fundus Firm : Normal Extremities: No Cyanosis,Clubbing or Edema Integumentary: Skin Intact without Lesions or Rash Psychological: Alert & Oriented X3, Appropriate Mood & Affect Result Diagram: 12/23/17 0740 Assessment and Plan 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 Will plan for discharge to day. Follow up in 2-3 weeks for post depression screening. (2) Elective induction of labor planned Status: Resolved FE MONTEMAYOR DO Dec 23, 2017 10:24
[2017-12-23] MEDS ORDERED: IBUP800T37 PO (10:25)
[2017-12-23] MEDS ORDERED: LOR5/325 PO (10:25)
--- NOTE | 2017-12-23 10:28 | OB/GYN Discharge Summary ---
Discharge Summary Reason for Hosp/Final Diag: (1) 39 weeks gestation of Status: Resolved Hospital Course & Plan: Pt presented for a schedule elective IOL. Received oxytocin and amniotomy. Progressed to complete and plus 2 with out any difficulty. She delivered a live born female. See delivery note for details of procedure. Pt remained in house post for 1 day. She was meeting post goals and desired to be discharged home on day one. Pt will follow up in clinic in 2-3 weeks. (2) Elective induction of labor planned Status: Resolved Lates Vital Signs Vital Signs Date Time Temp Pulse Resp B/P (MAP) Pulse Ox O2 Delivery O2 Flow Rate FiO2 12/23/17 08:30 97.3 65 16 128/76 (93) 93 Room Air 12/23/17 03:30 2.0 Weight (Pounds): 288 Result Diagram: 12/23/17 0740 Condition: Improved Discharge: Home Home Meds Active Scripts Ibuprofen (IBUPROFEN) 800 Mg Tablet, 800 MG PO Q8H@0700,1500,2300, #20 TAB 0 Refills Prov:FE MONTEMAYOR DO 12/23/17 Hydrocodone Bit/Acetaminophen (HYDROCODON-ACETAMINOPHEN 5-325) 1 Each Tablet, 1- 2 EACH PO Q4H PRN for PAIN, #20 TAB 0 Refills Prov:FE MONTEMAYOR DO 12/23/17 Reported Medications Prednisolone Acetate (PREDNISOLONE ACETATE) 5 Ml Drops.susp, 5 ML OP 5XD 09/10/17 Vits W-Ca,Fe,Fa(<1MG) ( VITAMINS) 1 Each Tablet, 1 EACH PO DAILY, TAB 09/10/17 Albuterol Sulfate 90 Mcg/Act (PROAIR HFA 90 MCG/ACT) 8.5 Gm Hfa.aer.ad, 1-2 PUFF IH 3-4XD, INHALER 07/06/17 Follow up with: [facility] [phone], Dr. Montemayor [phone] Follow up in: 2 wks PO Discharge Diet: As Tolerates Discharge Activity: As Tolerates, Pelvic Rest FE MONTEMAYOR DO Dec 23, 2017 10:28
[2017-12-23] MEDS: DOCUSATE CALCIUM 240 MG CAP PO SCH (10:46)
--- NOTE | 2017-12-23 13:23 | Anesthesia Post Eval Note ---
Anesthesia Post Eval Note Stabil, afebrile. Pt able to participate in Eval: Yes Cardiovascular Status: Satisfactory Respiratory Status: Satisfactory Pain Managment: Satisfactory PO Nausea/Vomiting: Satisfactory Temperature Management: Satisfactory Mental Status: Satisfactory, Alert, Oriented X3 Post-Op Hydration Status: Satisfactory, Tolerating PO Well, Voiding w/o Difficulty Anesthesia Type: LEB Anesthesia Tolerance: Ambulatory without symptoms PDPH, some bruising on back at epidural insertion site, otherwise no complications. LAKESHA SEGURA PSYCHIATRIC THERAPIST Dec 23, 2017 13:23
[2017-12-24] MEDS ORDERED: DIPHTH/TETANUS/ACEL. PERTUSSIS IM ONLY ONE (09:00)
[2017-12-24] MEDS ORDERED: INFLUENZA VIRUS VAC 0.5ML SYR IM ONLY ONE (09:00)
[2017-12-24] MEDS ORDERED: MEASLES,MUMP,RUBELLA VAC 0.5ML SUBQ ONE (09:00)
[2017-12-24] MEDS ORDERED: IBUP800T37 PO (15:02)
[2017-12-24] MEDS ORDERED: HYDR-385 PO (15:02)
== END 2017-12-23 15:30 | disposition home or self-care (01) | DRG 806 ==
LOC: OB 05:30 → PED 17:30
PROVIDERS: ADMIT Student in an Organized Health Care Education/Training Program; ATTEND Student in an Organized Health Care Education/Training Program
PROC: 10E0XZZ Delivery of Products of Conception, External Approach (ICD-10-PCS; principal; 2017-12-22)
PROC: 10907ZC Drainage of Amniotic Fluid, Therapeutic from Products of Conception, Via Natural or Artificial Opening (ICD-10-PCS; 2017-12-22)
PROC: 3E033VJ Introduction of Other Hormone into Peripheral Vein, Percutaneous Approach (ICD-10-PCS; 2017-12-22)
DX: O99.214 Obesity complicating childbirth (principal); Z68.42 Body mass index [BMI] 45.0-49.9, adult; Z37.0 Single live birth; Z3A.39 39 weeks gestation of pregnancy
CPT/HCPCS: 36415; 85025; 85027; 86703; 86850; 86900; 86901; J2405; J2590; J7120